=== PATIENT | female | born 1950 | race African-American/Black ===

== ENCOUNTER 2018-08-27 17:04 | Inpatient (IN) | payer BC, MEDICARE ==
[~2018-08-27] VITALS: Ht 167.6 cm; Wt 85.7 kg
[~2018-08-27 17:04] MED LIST: AMLO5TAB88; ESTR0.452; METO-539; RAMI5CAP65; URSO300C4
[2018-08-27] MEDS ORDERED: FAMOTIDINE 20MG/2ML VIAL IV STA (17:28)
[2018-08-27] MEDS ORDERED: SODIUM CHLORIDE 0.9% 1,000 ML IV ONE (17:28)
[2018-08-27] MEDS ORDERED: MORPHINE SULFATE 4 MG/ML CPJ (NOT FOR IM USE) IV STA (17:28)
[2018-08-27] MEDS ORDERED: ONDANSETRON HCL 4MG/2ML INJ IV STA (17:28)
[2018-08-27 18:00] LABS: BASOPHILS % 0.6 % (0.0-2.0); EOSINOPHILS % 1.7 % (0.0-5.0); HEMATOCRIT. 43.2 % (36.0-48.0); HEMOGLOBIN. 14.6 g/dL (12.0-16.0); LYMPHOCYTES % 21.1 % (20.0-50.0); MEAN CORPUSCULAR HEMOGLOBIN 30.6 pg (28.0-32.0); MEAN CORPUSCULAR VOLUME 90.3 fL (81.0-99.0); MEAN PLATELET VOLUME 8.5 fl (7.4-10.4); MONOCYTES % 6.5 % (2.0-8.0); NEUTROPHILS % 70.1 % (40.0-76.0); PLATELET 207 x1000/uL (130-400); RED BLOOD CELL COUNT 4.79 mill/uL (4.2-5.4); RED CELL DISTRIBUTION WIDTH 13.5 % (11.6-14.6)
[2018-08-27 18:06] LABS: CHLORIDE 109 mEq/L (98-107)
[2018-08-27 18:09] LABS: D-DIMER 0.38 mg/L FEU (<0.50); PROTHROMBIN TIME 10.5 sec (9.6-11.0)
[2018-08-27 18:10] LABS: ETHANOL BLOOD < 10 mg/dL
[2018-08-27 19:48] LABS: CLARITY URINE CLEAR (CLEAR); COLOR URINE YELLOW (YELLOW); KETONES URINE NEGATIVE (NEGATIVE); LEUKOCYTE ESTERASE URINE NEGATIVE (NEGATIVE); NITRITE URINE NEGATIVE (NEGATIVE); OCCULT BLOOD URINE NEGATIVE (NEGATIVE); PH URINE 7.5 (4.5-8.0); PROTEIN URINE NEGATIVE (NEGATIVE); SPECIFIC GRAVITY URINE 1.012 (1.005-1.030); UROBILINOGEN URINE 0.2 E.U./dL (0.2-1.0)
[2018-08-27 19:59] LABS: *AMPHETAMINES SCREEN URINE NEGATIVE (NEGATIVE); *BARBITURATES SCREEN URINE NEGATIVE (NEGATIVE); *BENZODIAZEPINES SCREEN URINE NEGATIVE (NEGATIVE); *COCAINE SCREEN URINE NEGATIVE (NEGATIVE); METHADONE URINE SCREEN NEGATIVE (NEGATIVE); OPIATES URINE SCREEN PRESUMTIVE POSITIVE (NEGATIVE); PHENCYCLIDINE URINE SCREEN NEGATIVE (NEGATIVE)
[2018-08-27 20:00] LABS: CANNABINOID URINE SCREEN NEGATIVE (NEGATIVE)
[2018-08-27] MEDS ORDERED: ONDANSETRON HCL 4MG/2ML INJ IV ONE (20:45)
[2018-08-27] MEDS ORDERED: MORPHINE SULFATE 4 MG/ML CPJ (NOT FOR IM USE) IV ONE (20:45)
[2018-08-27] MEDS ORDERED: IPRATROPIUM/ALBUTEROL 0.5-3(2.5)MG/3ML NEB INH PRN (23:30)
[2018-08-27] MEDS ORDERED: ONDANSETRON HCL 4MG/2ML INJ IV PRN (23:30)
[2018-08-28] VITALS (7 sets, daily range): BP systolic 118–164; BP diastolic 65–86
[2018-08-28] MEDS: SODIUM CHLORIDE 0.9% 1,000 ML IV SCH ×2 (00:01→11:53)
[2018-08-28 06:46] LABS: BASOPHILS % 0.5 % (0.0-2.0); EOSINOPHILS % 0.6 % (0.0-5.0); HEMATOCRIT. 41.2 % (36.0-48.0); HEMOGLOBIN. 13.9 g/dL (12.0-16.0); LYMPHOCYTES % 10.4 % (20.0-50.0); MEAN CORPUSCULAR HEMOGLOBIN 30.6 pg (28.0-32.0); MEAN CORPUSCULAR VOLUME 90.3 fL (81.0-99.0); MEAN PLATELET VOLUME 8.5 fl (7.4-10.4); MONOCYTES % 6.1 % (2.0-8.0); NEUTROPHILS % 82.4 % (40.0-76.0); PLATELET 215 x1000/uL (130-400); RED BLOOD CELL COUNT 4.56 mill/uL (4.2-5.4); RED CELL DISTRIBUTION WIDTH 13.4 % (11.6-14.6)
[2018-08-28 07:22] LABS: CHLORIDE 110 mEq/L (98-107)
[2018-08-28 07:33] LABS: CREATINE KINASE 81 IU/L (26-192)
[2018-08-28 07:34] LABS: T4 FREE 0.99 ng/dL (0.76-1.46)
[2018-08-28 07:39] LABS: LDL CHOLESTEROL 126 mg/dL (5-100)
[2018-08-28 07:40] LABS: HDL CHOLESTEROL 54 mg/dL (40-59)
[2018-08-28 07:42] LABS: CREATINE KINASE MB FRACTION < 1.0 ng/mL (0.5-3.6)
[2018-08-28] MEDS: ENOXAPARIN 40MG/0.4ML SYR SUBCUT SCH (09:11)
[2018-08-28] MEDS ORDERED: KETOROLAC 15MG/ML VIAL IV PRN (16:45)
[2018-08-28 18:33] LABS: CREATINE KINASE 98 IU/L (26-192)
[2018-08-28 18:34] LABS: CREATINE KINASE MB FRACTION < 1.0 ng/mL (0.5-3.6)
[2018-08-29] VITALS: BP 163/74
[2018-08-29 04:00] VITALS: BP 163/74
[2018-08-29 08:00] VITALS: BP 140/85
[2018-08-29] MEDS: ENOXAPARIN 40MG/0.4ML SYR SUBCUT SCH (08:57)
[2018-08-29 11:50] VITALS: BP 140/85
[2018-08-29 12:00] VITALS: BP 147/74
== END 2018-08-29 14:58 | disposition home or self-care (01) | DRG 439 ==
LOC: ER 17:10 → 6EST 20:42 → EDBEDREQTM 20:44 → EDBEDREQSVC 20:44 → EDBEDREQ 20:44 → ENRESERV 21:38
PROVIDERS: ADMIT Internal Medicine; ATTEND Internal Medicine
DX: K85.00 Idiopathic acute pancreatitis without necrosis or infection (principal); D68.59 Other primary thrombophilia; D17.71 Benign lipomatous neoplasm of kidney; I10 Essential (primary) hypertension; K76.89 Other specified diseases of liver; E78.5 Hyperlipidemia, unspecified; E87.6 Hypokalemia; K74.60 Unspecified cirrhosis of liver; R74.0 Nonspecific elevation of levels of transaminase and lactic acid dehydrogenase [LDH]; R73.9 Hyperglycemia, unspecified; Z90.49 Acquired absence of other specified parts of digestive tract; Z90.710 Acquired absence of both cervix and uterus; Z79.899 Other long term (current) drug therapy
CPT/HCPCS: 36415; 71045; 74176; 74181; 80061; 80305; 80320; 82550; 82553; 83880; 84439; 84443; 84481; 84484; 85379; 93005; 93970; 96374; 96375; 99285; J1650; J1885; J2270; J2405; J3490; J7030; G0480

== ENCOUNTER 2020-07-30 22:22 | Emergency (ER) | payer BC, MEDICARE ==
[~2020-07-30] VITALS: Ht 167.6 cm; Wt 90.0 kg
[2020-07-30] MEDS ORDERED: ONDANSETRON HCL 4MG/2ML INJ IV STA (23:27)
[2020-07-30] MEDS ORDERED: SODIUM CHLORIDE 0.9% 1,000 ML IV ONE (23:30)
[2020-07-30] MEDS ORDERED: KETOROLAC 15MG/ML VIAL IV ONE (23:30)
[2020-07-30 23:59] LABS: CLARITY URINE CLEAR (CLEAR); COLOR URINE ORANGE (YELLOW); KETONES URINE NEGATIVE (NEGATIVE); LEUKOCYTE ESTERASE URINE 1+ (NEGATIVE); NITRITE URINE POSITIVE (NEGATIVE); OCCULT BLOOD URINE TRACE (NEGATIVE); PH URINE 5.5 (4.5-8.0); PROTEIN URINE NEGATIVE (NEGATIVE); SPECIFIC GRAVITY URINE 1.009 (1.005-1.030)
[2020-07-31 00:13] LABS: BASOPHILS % 0.9 % (0.0-2.0); EOSINOPHILS % 2.4 % (0.0-5.0); HEMATOCRIT. 39.5 % (36.0-48.0); HEMOGLOBIN. 13.6 g/dL (12.0-16.0); LYMPHOCYTES % 19.8 % (20.0-50.0); MEAN CORPUSCULAR HEMOGLOBIN 30.7 pg (28.0-32.0); MEAN CORPUSCULAR VOLUME 89.1 fL (81.0-99.0); MEAN PLATELET VOLUME 8.1 fl (7.4-10.4); MONOCYTES % 9.8 % (2.0-8.0); NEUTROPHILS % 67.1 % (40.0-76.0); PLATELET 242 x1000/uL (130-400); RED BLOOD CELL COUNT 4.44 mill/uL (4.2-5.4); RED CELL DISTRIBUTION WIDTH 13.5 % (11.6-14.6)
[2020-07-31 00:21] LABS: CHLORIDE 107 mEq/L (98-107)
[2020-07-31 02:50] VITALS: BP 161/72
== END 2020-07-31 03:00 | disposition home or self-care (01) ==
LOC: ER 22:22
DX: N39.0 Urinary tract infection, site not specified (principal); R33.8 Other retention of urine; I10 Essential (primary) hypertension; Z90.49 Acquired absence of other specified parts of digestive tract; Z88.5 Allergy status to narcotic agent
CPT/HCPCS: 36415; 51702; 80053; 81003; 85025; 87086; 99284; J7030; 99283

== ENCOUNTER 2021-10-17 13:45 | Emergency (ER) | payer BC ==
[~2021-10-17] VITALS: Ht 172.7 cm; Wt 80.0 kg
[2021-10-17 15:06] LABS: BASOPHILS % 0.6 % (0.0-2.0); EOSINOPHILS % 1.7 % (0.0-5.0); HEMATOCRIT. 42.9 % (36.0-48.0); LYMPHOCYTES % 13.2 % (20.0-50.0); MEAN CORPUSCULAR HEMOGLOBIN 30.7 pg (28.0-32.0); MEAN CORPUSCULAR VOLUME 93.9 fL (81.0-99.0); MEAN PLATELET VOLUME 8.4 fl (7.4-10.4); MONOCYTES % 6.2 % (2.0-8.0); NEUTROPHILS % 78.3 % (40.0-76.0); PLATELET 283 x1000/uL (130-400); RED BLOOD CELL COUNT 4.56 mill/uL (4.2-5.4); RED CELL DISTRIBUTION WIDTH 14.9 % (11.6-14.6)
[2021-10-17 15:38] LABS: CHLORIDE 107 mEq/L (98-107)
[2021-10-17 16:54] VITALS: BP 154/73
[2021-10-17] MEDS ORDERED: LIDOCAINE HCL 1% 20ML VIAL (Pyxis) INJ INFIL ONE (17:15)
[2021-10-17] MEDS ORDERED: CEFTRIAXONE SODIUM 1 G/VIAL IM ONE (17:15)
[2021-10-17 17:20] LABS: CLARITY URINE CLEAR (CLEAR); COLOR URINE YELLOW (YELLOW); KETONES URINE NEGATIVE (NEGATIVE); LEUKOCYTE ESTERASE URINE 2+ (NEGATIVE); NITRITE URINE NEGATIVE (NEGATIVE); OCCULT BLOOD URINE NEGATIVE (NEGATIVE); PH URINE 5.5 (4.5-8.0); PROTEIN URINE NEGATIVE (NEGATIVE)
[2021-10-17] MEDS ORDERED: PHEN-815 MT (17:30)
[2021-10-17] MEDS ORDERED: CEPH500T MT (17:30)
== END 2021-10-17 18:50 | disposition home or self-care (01) ==
LOC: ER 13:45
DX: N39.0 Urinary tract infection, site not specified (principal); I10 Essential (primary) hypertension; Z88.5 Allergy status to narcotic agent; Z86.73 Personal history of transient ischemic attack (TIA), and cerebral infarction without residual deficits
CPT/HCPCS: 36415; 80053; 81003; 82962; 85025; 87077; 87086; 87186; 96372; 99283; J0696

== ENCOUNTER 2021-10-25 19:15 | Inpatient (IN) | payer BC ==
[~2021-10-25] VITALS: Ht 175.3 cm; Wt 80.3 kg
[~2021-10-25 19:15] MED LIST changes: +CEPH500T MT; +PHEN-815 MT
[2021-10-25 21:08] LABS: EOSINOPHILS % 3.4 % (0.0-5.0); HEMATOCRIT. 39.3 % (36.0-48.0); HEMOGLOBIN. 13.3 g/dL (12.0-16.0); LYMPHOCYTES % 14.8 % (20.0-50.0); MEAN CORPUSCULAR HEMOGLOBIN 31.3 pg (28.0-32.0); MEAN CORPUSCULAR VOLUME 92.2 fL (81.0-99.0); MONOCYTES % 6.1 % (2.0-8.0); NEUTROPHILS % 74.7 % (40.0-76.0); PLATELET 330 x1000/uL (130-400); RED BLOOD CELL COUNT 4.26 mill/uL (4.2-5.4); RED CELL DISTRIBUTION WIDTH 14.5 % (11.6-14.6)
[2021-10-25 21:16] LABS: INR 1.1; PROTHROMBIN TIME 11.4 sec (9.6-11.0)
[2021-10-25 21:21] LABS: CHLORIDE 106 mEq/L (98-107)
[2021-10-25] MEDS ORDERED: POTASSIUM CHLORIDE 20MEQ TABLET SR PO ONE (22:15)
[2021-10-25] MEDS ORDERED: PIPERACILLIN/TAZOBACTAM 3.375GM/50ML PREMIX IV STA (23:18)
[2021-10-25] MEDS ORDERED: SODIUM CHLORIDE 0.9% 1,000 ML IV ONE (23:30)
[2021-10-25] MEDS ORDERED: PIPERACILLIN/TAZ 3.375G PREMIX 50 ML IV NR (23:30)
[2021-10-26 00:16] LABS: CLARITY URINE CLEAR (CLEAR); COLOR URINE DARK YELLOW (YELLOW); KETONES URINE TRACE (NEGATIVE); LEUKOCYTE ESTERASE URINE NEGATIVE (NEGATIVE); NITRITE URINE NEGATIVE (NEGATIVE); OCCULT BLOOD URINE NEGATIVE (NEGATIVE); PH URINE 5.5 (4.5-8.0); PROTEIN URINE TRACE (NEGATIVE); SPECIFIC GRAVITY URINE 1.029 (1.005-1.030)
[2021-10-26] MEDS ORDERED: DIATR MEGLU/DIATRIZOATE SOLN 30ML ONE (01:15)
[2021-10-26] MEDS ORDERED: DIATR MEGLU/DIATRIZOATE SOLN 120ML ONE (01:16)
[2021-10-26] MEDS ORDERED: IOHEXOL-300 100 ML BOTTLE ONE (01:16)
[2021-10-26] MEDS ORDERED: PIPERACILLIN/TAZ 3.375G PREMIX 50 ML IV SCH (03:00)
[2021-10-26] MEDS ORDERED: ONDANSETRON HCL 4MG/2ML INJ IV PRN (03:00)
[2021-10-26] MEDS ORDERED: HYDROMORPHONE HCL/PF 2MG/ML CPJ IV PRN ×2 (03:00→21:15)
[2021-10-26] MEDS ORDERED: DEXT 5%/0.45% NACL KCL 30MEQ/L 1,000 ML IV SCH (05:00)
[2021-10-26] MEDS ORDERED: PIPERACILLIN/TAZOBACTAM 3.375G in DEXT 5% WATER 50ML IV SCH (06:00)
[2021-10-26] MEDS ORDERED: PIPERACILLIN/TAZ 3.375G PREMIX 50 ML IV NR (06:15)
[2021-10-26] MEDS: POTASSIUM CHLORIDE INJ 30 MEQ in DEXT 5%/0.45% NACL 1000ML 1,000 ML IV SCH ×2 (08:15→18:02)
[2021-10-26 09:30] VITALS: BP 148/76
[2021-10-26 10:00] VITALS: BP 148/76
[2021-10-26] MEDS: METOPROLOL TARTRATE 50MG TABLET PO SCH ×2 (11:09→18:02)
[2021-10-26 12:00] VITALS: BP 151/71
[2021-10-26] MEDS ORDERED: *PATIENT'S OWN MEDICATION STORAGE XX SCH (13:30)
[2021-10-26] MEDS: PIPERACILLIN/TAZOBACTAM 3.375G in DEXT 5% WATER 50ML IV SCH ×2 (15:29→22:00)
[2021-10-26 16:00] VITALS: BP 162/72
[2021-10-26 20:00] VITALS: BP 166/76
[2021-10-26] MEDS ORDERED: NALOXONE HCL 0.4MG/ML VIAL IV PRN (21:15)
[2021-10-27] VITALS: BP 170/72
[2021-10-27 04:00] VITALS: BP_SYST 164; BP_SYST 166; BP_DIAS 70; BP_DIAS 81
[2021-10-27] MEDS: POTASSIUM CHLORIDE INJ 30 MEQ in DEXT 5%/0.45% NACL 1000ML 1,000 ML IV SCH ×2 (04:18→15:48)
[2021-10-27] MEDS: PIPERACILLIN/TAZOBACTAM 3.375G in DEXT 5% WATER 50ML IV SCH ×3 (06:00→22:01)
[2021-10-27 06:39] LABS: CHLORIDE 111 mEq/L (98-107)
[2021-10-27 06:41] LABS: BASOPHILS % 1.1 % (0.0-2.0); EOSINOPHILS % 4.5 % (0.0-5.0); HEMATOCRIT. 37.2 % (36.0-48.0); HEMOGLOBIN. 12.8 g/dL (12.0-16.0); LYMPHOCYTES % 14.4 % (20.0-50.0); MEAN CORPUSCULAR HEMOGLOBIN 31.2 pg (28.0-32.0); MEAN CORPUSCULAR VOLUME 91.1 fL (81.0-99.0); MONOCYTES % 7.8 % (2.0-8.0); NEUTROPHILS % 72.2 % (40.0-76.0); PLATELET 269 x1000/uL (130-400); RED BLOOD CELL COUNT 4.08 mill/uL (4.2-5.4)
[2021-10-27 08:00] VITALS: BP 150/73
[2021-10-27] MEDS: METOPROLOL TARTRATE 50MG TABLET PO SCH ×2 (09:00→16:55)
[2021-10-27 12:00] VITALS: BP 164/73
[2021-10-27] MEDS ORDERED: HYDRALAZINE 20MG/ML VIAL IV PRN (13:15)
[2021-10-27] MEDS ORDERED: LIDOCAINE HCL 1% 50ML VIAL (10MG/ML) ONE (14:33)
[2021-10-27] MEDS ORDERED: POTASSIUM CHLORIDE INJ 40 MEQ in DEXT 5% WATER 250 ML IV SCH (15:00)
[2021-10-27 16:00] VITALS: BP 157/84
[2021-10-27 20:00] VITALS: BP 198/71
[2021-10-27] MEDS: ACETAMINOPHEN 325MG TABLET PO PRN (22:32)
[2021-10-28] VITALS: BP 171/68
[2021-10-28 04:00] VITALS: BP 179/72
[2021-10-28] MEDS: PIPERACILLIN/TAZOBACTAM 3.375G in DEXT 5% WATER 50ML IV SCH ×3 (05:16→20:53)
[2021-10-28] MEDS: POTASSIUM CHLORIDE INJ 30 MEQ in DEXT 5%/0.45% NACL 1000ML 1,000 ML IV SCH ×3 (05:16→20:53)
[2021-10-28 08:00] VITALS: BP 179/79
[2021-10-28] MEDS: METOPROLOL TARTRATE 50MG TABLET PO SCH ×2 (08:50→18:16)
[2021-10-28 10:59] LABS: BASOPHILS % 1.2 % (0.0-2.0); EOSINOPHILS % 4.7 % (0.0-5.0); HEMATOCRIT. 37.6 % (36.0-48.0); HEMOGLOBIN. 12.7 g/dL (12.0-16.0); LYMPHOCYTES % 13.4 % (20.0-50.0); MEAN CORPUSCULAR HEMOGLOBIN 30.8 pg (28.0-32.0); MEAN CORPUSCULAR VOLUME 91.4 fL (81.0-99.0); MEAN PLATELET VOLUME 7.8 fl (7.4-10.4); NEUTROPHILS % 71.7 % (40.0-76.0); PLATELET 268 x1000/uL (130-400); RED BLOOD CELL COUNT 4.12 mill/uL (4.2-5.4); RED CELL DISTRIBUTION WIDTH 14.1 % (11.6-14.6)
[2021-10-28 11:13] LABS: CHLORIDE 109 mEq/L (98-107)
[2021-10-28] MEDS: ACETAMINOPHEN 325MG TABLET PO PRN ×2 (11:51→20:52)
[2021-10-28 12:00] VITALS: BP 172/71
[2021-10-28 16:00] VITALS: BP 156/64
[2021-10-28] MEDS ORDERED: ENALAPRIL 1.25MG/ML VIAL 1ML IV SCH (18:00)
[2021-10-28 20:00] VITALS: BP 157/69
[2021-10-29] VITALS (7 sets, daily range): BP systolic 148–170; BP diastolic 61–88
[2021-10-29] MEDS: METOPROLOL TARTRATE 50MG TABLET PO SCH ×2 (09:09→17:11)
[2021-10-29] MEDS: POTASSIUM CHLORIDE INJ 30 MEQ in DEXT 5%/0.45% NACL 1000ML 1,000 ML IV SCH ×2 (09:10→17:13)
[2021-10-29] MEDS: PIPERACILLIN/TAZOBACTAM 3.375G in DEXT 5% WATER 50ML IV SCH ×2 (13:00→22:22)
[2021-10-29] MEDS: LOSARTAN POTASSIUM 100 MG TABLET PO SCH (13:04)
[2021-10-29] MEDS: ACETAMINOPHEN 325MG TABLET PO PRN (22:23)
[2021-10-30] VITALS: BP 124/67
[2021-10-30] MEDS: PIPERACILLIN/TAZOBACTAM 3.375G in DEXT 5% WATER 50ML IV SCH ×3 (05:55→22:03)
[2021-10-30 08:00] VITALS: BP 177/75
[2021-10-30] MEDS: LOSARTAN POTASSIUM 100 MG TABLET PO SCH (08:54)
[2021-10-30] MEDS: METOPROLOL TARTRATE 50MG TABLET PO SCH ×2 (08:55→17:29)
[2021-10-30 11:58] VITALS: BP 169/73
[2021-10-30] MEDS: HYDRALAZINE HCL 100MG TABLET PO SCH ×2 (14:23→21:59)
[2021-10-30] MEDS: POTASSIUM CHLORIDE INJ 30 MEQ in DEXT 5%/0.45% NACL 1000ML 1,000 ML IV SCH ×2 (14:40→22:03)
[2021-10-30 16:00] VITALS: BP 160/63
[2021-10-30 20:00] VITALS: BP 121/73
[2021-10-30] MEDS: ACETAMINOPHEN 325MG TABLET PO PRN (22:00)
[2021-10-31] VITALS: BP 151/63
[2021-10-31 04:00] VITALS: BP 159/72
[2021-10-31] MEDS: PIPERACILLIN/TAZOBACTAM 3.375G in DEXT 5% WATER 50ML IV SCH (05:52)
[2021-10-31 08:00] VITALS: BP 174/71
[2021-10-31] MEDS: LOSARTAN POTASSIUM 100 MG TABLET PO SCH (09:40)
[2021-10-31] MEDS: HYDRALAZINE HCL 100MG TABLET PO SCH (09:41)
[2021-10-31] MEDS: METOPROLOL TARTRATE 50MG TABLET PO SCH (09:41)
[2021-10-31] MEDS: POTASSIUM CHLORIDE INJ 30 MEQ in DEXT 5%/0.45% NACL 1000ML 1,000 ML IV SCH (09:42)
[2021-10-31 12:00] VITALS: BP 145/70
[2021-10-31] MEDS ORDERED: SUCR1TAB MT (14:59)
[2021-10-31] MEDS ORDERED: OMEP40CA20 MT (14:59)
[2021-10-31 16:26] VITALS: BP 152/60
== END 2021-10-31 20:14 | disposition home or self-care (01) | DRG 381 ==
LOC: ER 19:15 → MICUSO 10-26 00:21 → 7WST 10-26 09:36
PROVIDERS: ADMIT Internal Medicine Pulmonary Disease; ATTEND Internal Medicine Pulmonary Disease
PROC: 02HV33Z Insertion of Infusion Device into Superior Vena Cava, Percutaneous Approach (ICD-10-PCS; principal; 2021-10-27)
PROC: B5181ZA Fluoroscopy of Superior Vena Cava using Low Osmolar Contrast, Guidance (ICD-10-PCS; 2021-10-27)
PROC: B548ZZA Ultrasonography of Superior Vena Cava, Guidance (ICD-10-PCS; 2021-10-27)
DX: K26.5 Chronic or unspecified duodenal ulcer with perforation (principal); I69.351 Hemiplegia and hemiparesis following cerebral infarction affecting right dominant side; N39.0 Urinary tract infection, site not specified; I11.9 Hypertensive heart disease without heart failure; E87.6 Hypokalemia; E78.00 Pure hypercholesterolemia, unspecified; Z20.822 Contact with and (suspected) exposure to COVID-19; Z88.8 Allergy status to other drugs, medicaments and biological substances; Z90.710 Acquired absence of both cervix and uterus
CPT/HCPCS: 36415; 36573; 74176; 74177; 80048; 80053; 81003; 85025; 87426; 97116; 97162; 97530; 99291; C1725; C1893; J0360; J1170; J2543; J3480; J3490; J7030; J7060; Q9963; Q9967

== ENCOUNTER 2024-07-09 17:27 | Emergency (ER) | payer BC, MEDICARE ==
[~2024-07-09] VITALS: Ht 175.3 cm; Wt 70.0 kg
[~2024-07-09 17:27] MED LIST changes: -CEPH500T MT; +OMEP40CA20 MT; -RAMI5CAP65; +RAMI5CAP71; +SUCR1TAB MT
[2024-07-09 17:33] VITALS: O2SAT 97
[2024-07-09] MEDS ORDERED: DICYCLOMINE 10 MG/5 ML ORAL SYR PO STA (18:22)
[2024-07-09] MEDS: DICYCLOMINE HCL 10MG CAPSULE PO STA (18:40)
[2024-07-09] MEDS: MAGNESIUM/ALUMINUM HYDROXIDE/SIMETHICONE 30ML UDC PO STA (18:40)
[2024-07-09] MEDS: ONDANSETRON 4MG ODT PO STA (18:40)
[2024-07-09 18:45] LABS: BASOPHILS % 0.5 % (0.0-2.0); EOSINOPHILS % 2.8 % (0.0-5.0); HEMATOCRIT. 39.4 % (36.0-48.0); HEMOGLOBIN. 13.2 g/dL (12.0-16.0); LYMPHOCYTES % 18.9 % (20.0-50.0); MEAN CORPUSCULAR HEMOGLOBIN 30.7 pg (28.0-32.0); MEAN CORPUSCULAR HGB CONC 33.4 g/dL (31.0-37.0); MEAN PLATELET VOLUME 9.1 fl (7.4-10.4); MONOCYTES % 6.8 % (2.0-8.0); PLATELET 207 x1000/uL (130-400); RED BLOOD CELL COUNT 4.28 mill/uL (4.2-5.4); RED CELL DISTRIBUTION WIDTH 14.2 % (11.6-14.6); WHITE BLOOD COUNT 4.5 x1000/uL (4.5-11.0)
[2024-07-09 18:53] LABS: CHLORIDE 111 mEq/L (98-107); POTASSIUM 3.9 mEq/L (3.5-5.1); SODIUM 143 mEq/L (136-145)
[2024-07-09 18:54] LABS: CARBON DIOXIDE 26 mEq/L (21-32)
[2024-07-09 18:55] LABS: CALCIUM 9.9 mg/dL (8.7-10.4)
[2024-07-09 18:59] LABS: CREATININE 1.1 mg/dL (0.6-1.0)
[2024-07-09 19:00] LABS: GLUCOSE 97 mg/dL (70-105); UREA NITROGEN BLOOD 17 mg/dL (9-23)
[2024-07-09 19:01] LABS: ALANINE AMINOTRANSFERASE 20 IU/L (10-49); ASPARTATE AMINOTRANSFERASE 33 IU/L (<34)
[2024-07-09 19:02] LABS: BILIRUBIN DIRECT 0.2 mg/dL (<=3.0); BILIRUBIN TOTAL 0.5 mg/dL (0.1-1.0); PROTEIN TOTAL 6.9 g/dL (6.0-8.3)
[2024-07-09 19:05] LABS: INR 1.1; PROTHROMBIN TIME 11.4 sec (9.6-11.0)
[2024-07-09] MEDS: KETOROLAC 15MG/ML VIAL IM ONE (19:08)
[2024-07-09] MEDS: SENNOSIDES/DOCUSATE SOD 8.6/50MG TABLET PO PRN (20:34)
[2024-07-09] MEDS: POLYETHYLENE GLYCOL 3350 (17GM) 1 DOSE PACK PO ONE (20:34)
[2024-07-09] MEDS: DOCUSATE SODIUM 100MG CAPSULE PO ONE (20:34)
[2024-07-09] MEDS: KETOROLAC 30MG/ML VIAL IM ONE (20:34)
[2024-07-09 21:01] VITALS: BP 148/70; PULSE 62; RESP 16; TEMP 36.7; O2SAT 100
== END 2024-07-09 21:30 | disposition home or self-care (01) ==
LOC: ER 17:27
DX: R10.13 Epigastric pain (principal); I10 Essential (primary) hypertension; E78.00 Pure hypercholesterolemia, unspecified; Z88.5 Allergy status to narcotic agent; Z79.899 Other long term (current) drug therapy; Z98.890 Other specified postprocedural states; Z86.73 Personal history of transient ischemic attack (TIA), and cerebral infarction without residual deficits
CPT/HCPCS: 99284; 74176; 80076; 80048; 83605; 83690; 85025; 85610; 36415; Q0162; J1885